=== PATIENT | female | born 1960 | race Two or more races ===

== ENCOUNTER → 2024-06-23 | Emergency (ER) | payer OTHER ==
[~2024-06-23] VITALS: Ht 165.1 cm; Wt 65.8 kg
[~2024-06-23] MED LIST: CIPRO500 MG PO; FAMOTIDINE/PF 20 MG/2 ML VIAL ONE; FAMOtidine 10 MG/ML (4ML VIAL) IV STA; METRONIDAZOLE500 MG PO; PEPCID AC20 MG PO; PROBIOTIC1 EAC2 PO; RINGERS SOLUTION,LACTATED 1,000 ML IV STA
[2024-06-23 16:04] LABS: HEMATOCRIT 38.9 % (36.0-45.00); HEMOGLOBIN 12.8 g/dL (12.0-15.00); MEAN CORPUSCULAR HEMOGLOBIN 28.2 pg (27.00-32.0); MEAN CORPUSCULAR HGB CONC 32.8 g/dl (32.0-36.0); PLATELET COUNT 198 K/uL (150-450); RED BLOOD COUNT 4.53 M/uL (4.00-6.00); RED CELL DISTRIBUTION WIDTH 13.6 % (11.5-14.5)
[2024-06-23 16:37] LABS: ALBUMIN 3.4 gm/dL (3.4-5.0); BILIRUBIN TOTAL 0.25 mg/dL (0.3-1.2); BILIRUBIN,CONJUGATED 0.11 mg/dL (0.0-0.2); BILIRUBIN,UNCONJUGATED 0.14 mg/dL (0.0-0.6); CREATININE SERUM 0.91 mg/dL (0.55-1.02); GFR 62.64; POTASSIUM 4.18 mEq/L (3.5-5.1); TOTAL PROTEIN 7.4 gm/dL (6.4-8.2)
[2024-06-23 17:05] LABS: PH,URINE 6.5 (5.0-8.0); URINE APPEARANCE Clear; URINE BILIRRUBIN Negative (NEGATIVE); URINE BLOOD Negative; URINE COLOR Yellow; URINE GLUCOSE Negative (NEGATIVE); URINE KETONE Negative (NEGATIVE); URINE LEUKOCYTE Moderate; URINE NITRATE Negative; URINE PROTEIN Negative (NEGATIVE); URINE UROBILINOGEN 0.2 E.U./dl
[2024-06-23 17:09] LABS: URINE BACTERIA 1458.8 uL (0.0-1933); URINE EPITHELIAL CELLS 3.4 uL (0.0-38.8); URINE RBC 4.5 uL (0.0-20.8); URINE WBC 598.2 uL (0.0-23.2)
[2024-06-23 17:15] LABS: URINE CAST 0.73 uL (0.0-1.40)
== END | disposition home or self-care (01) ==
LOC: ER 13:03
PROVIDERS: General Practice
DX: K57.30 Diverticulosis of large intestine without perforation or abscess without bleeding (principal); N39.0 Urinary tract infection, site not specified; N20.0 Calculus of kidney; M85.88 Other specified disorders of bone density and structure, other site; M51.369 Other intervertebral disc degeneration, lumbar region without mention of lumbar back pain or lower extremity pain

== ENCOUNTER → 2024-08-22 10:04 | Outpatient (CLI) | payer OTHER ==
[~2024-08-22 10:04] MED LIST changes: -FAMOTIDINE/PF 20 MG/2 ML VIAL ONE; -FAMOtidine 10 MG/ML (4ML VIAL) IV STA; -RINGERS SOLUTION,LACTATED 1,000 ML IV STA
[2024-08-22 11:23] LABS: PH,URINE 5.5 (5.0-8.0); URINE APPEARANCE Clear; URINE BILIRRUBIN Negative (NEGATIVE); URINE BLOOD Negative; URINE COLOR Yellow; URINE GLUCOSE Negative (NEGATIVE); URINE KETONE Negative (NEGATIVE); URINE LEUKOCYTE Trace; URINE NITRATE Negative; URINE PROTEIN Negative (NEGATIVE); URINE UROBILINOGEN 0.2 E.U./dl
[2024-08-22 11:27] LABS: URINE BACTERIA 35.4 uL (0.0-1933); URINE EPITHELIAL CELLS 14.5 uL (0.0-38.8); URINE RBC 8.8 uL (0.0-20.8); URINE WBC 11.8 uL (0.0-23.2)
[2024-08-22 11:50] LABS: HEMOGLOBIN 12.8 g/dL (12.0-15.00); MEAN CELL VOLUME 86.1 fL (80.00-100.00); MEAN CORPUSCULAR HEMOGLOBIN 28.2 pg (27.00-32.0); MEAN CORPUSCULAR HGB CONC 32.7 g/dl (32.0-36.0); PLATELET COUNT 184 K/uL (150-450); RED BLOOD COUNT 4.53 M/uL (4.00-6.00); RED CELL DISTRIBUTION WIDTH 14.3 % (11.5-14.5)
[2024-08-22 12:06] LABS: ALBUMIN 3.6 gm/dL (3.4-5.0); BILIRUBIN TOTAL 0.41 mg/dL (0.3-1.2); CALCIUM 8.6 mg/dL (8.5-10.1); CHOL HDL RATIO 3.1 (0-5.0); CREATININE SERUM 0.74 mg/dL (0.55-1.02); GFR 79.26; POTASSIUM 4.18 mEq/L (3.5-5.1); TOTAL PROTEIN 7.6 gm/dL (6.4-8.2)
[2024-08-22 12:06] LABS: URINE CAST 0.29 uL (0.0-1.40)
[2024-08-23 12:04] LABS: VITAMIN D3 25 HYDROXY 54.84 ng/ml (30-120)
== END | disposition home or self-care (01) ==
LOC: LAB 10:04
PROVIDERS: ATTEND General Practice
DX: E11.9 Type 2 diabetes mellitus without complications (principal); E03.9 Hypothyroidism, unspecified

== ENCOUNTER 2024-08-25 07:51 | Outpatient (CLI) | payer OTHER | END 2024-08-25 07:53 | disposition home or self-care (01) | LOC: MAMO-SONO 07:51 | PROVIDERS: ATTEND General Practice | DX: Z12.31 Encounter for screening mammogram for malignant neoplasm of breast (principal); R10.0 Acute abdomen ==

== ENCOUNTER 2024-08-25 09:19 | Outpatient (CLI) | payer OTHER ==
[2024-08-25 10:58] LABS: ob NEGATIVE (NEGATIVE)
== END 2024-08-25 09:20 | disposition home or self-care (01) ==
LOC: LAB 09:19
PROVIDERS: ATTEND General Practice
DX: E11.9 Type 2 diabetes mellitus without complications (principal); E03.0 Congenital hypothyroidism with diffuse goiter; I10 Essential (primary) hypertension; Z12.11 Encounter for screening for malignant neoplasm of colon

== ENCOUNTER 2024-09-08 09:36 | Outpatient (CLI) | payer OTHER | END 2024-09-08 09:40 | disposition home or self-care (01) | LOC: SONOGRAMA 09:36 | PROVIDERS: ATTEND General Practice | DX: N63.0 Unspecified lump in unspecified breast (principal) ==

== ENCOUNTER → 2024-09-30 09:23 | Outpatient (CLI) | payer OTHER ==
[2024-09-30 10:15] LABS: URINE BACTERIA 379.3 uL (0.0-1933); URINE EPITHELIAL CELLS 4.5 uL (0.0-38.8); URINE RBC 5.4 uL (0.0-20.8)
[2024-09-30 10:26] LABS: BASO % 0.3 % (0.1-1.2); HEMATOCRIT 36.5 % (34.1-44.9); HEMOGLOBIN 12.1 g/dL (11.2-15.7); LYMPH # 1.14 (1.18-3.74); LYMPH % 36.8 % (19.3-53.1); MEAN CORPUSCULAR HEMOGLOBIN 27.9 pg (25.6-32.2); MONO # 0.26 (0.24-0.82); MONO % 8.4 % (4.7-12.5); NEUT # 1.69 (1.56-6.13); NEUT % 54.5 % (34.0-71.1); PLATELET COUNT 196 K/uL (163-369); RED BLOOD COUNT 4.34 M/uL (3.93-5.22); RED CELL DISTRIBUTION WIDTH 13.6 % (11.6-14.4)
[2024-09-30 10:28] LABS: URINE BILIRRUBIN NEGATIVE (NEGATIVE); URINE BLOOD NEGATIVE; URINE GLUCOSE NEGATIVE (NEGATIVE); URINE KETONE NEGATIVE (NEGATIVE); URINE LEUKOCYTE MODERATE; URINE NITRATE NEGATIVE; URINE PROTEIN NEGATIVE (NEGATIVE); URINE UROBILINOGEN 0.2 E.U./dl
[2024-09-30 10:39] LABS: URINE APPEARANCE CLEAR; URINE COLOR YELLOW
[2024-09-30 11:07] LABS: ALBUMIN 3.4 gm/dL (3.4-5.0); BILIRUBIN TOTAL 0.41 mg/dL (0.3-1.2); CALCIUM 8.5 mg/dL (8.5-10.1); CHOL HDL RATIO 3.3 (0-5.0); CREATININE SERUM 0.7 mg/dL (0.55-1.02); GFR 84.51; GLOBULINA 4.1 G/DL (2.4-3.5); POTASSIUM 4.07 mEq/L (3.5-5.1); TOTAL PROTEIN 7.5 gm/dL (6.4-8.2); TSH 2.46 uIU/mL (0.358-3.74)
[2024-09-30 13:16] LABS: ob NEGATIVE (NEGATIVE)
== END | disposition home or self-care (01) ==
LOC: LAB 09:23
PROVIDERS: ATTEND General Practice
DX: Z12.11 Encounter for screening for malignant neoplasm of colon (principal)

== ENCOUNTER → 2025-04-30 11:36 | Outpatient (CLI) | payer OTHER ==
[2025-04-30 12:20] LABS: BASO % 0.3 % (0.1-1.2); EOS # 0.00 (0.04-0.54); EOS % 0.0 % (0.7-7.0); LYMPH # 1.09 (1.18-3.74); LYMPH % 35.4 % (19.3-53.1); MEAN PLATELET VOLUME 10.20 fl (9.4-12.4); MONO # 0.27 (0.24-0.82); MONO % 8.8 % (4.7-12.5); NEUT # 1.70 (1.56-6.13); NEUT % 55.2 % (34.0-71.1); RED CELL DISTRIBUTION WIDTH 13.1 % (11.6-14.4)
[2025-04-30 12:22] LABS: URINE APPEARANCE Clear; URINE BILIRRUBIN Negative (NEGATIVE); URINE BLOOD Negative; URINE COLOR Yellow; URINE GLUCOSE Negative (NEGATIVE); URINE KETONE Negative (NEGATIVE); URINE LEUKOCYTE Moderate; URINE NITRATE Negative; URINE PROTEIN Negative (NEGATIVE); URINE UROBILINOGEN 0.2 E.U./dl
[2025-04-30 12:25] LABS: URINE BACTERIA 679.4 uL (0.0-1933); URINE EPITHELIAL CELLS 8.7 uL (0.0-38.8); URINE RBC 2.4 uL (0.0-20.8); URINE WBC 211.8 uL (0.0-23.2)
[2025-04-30 12:32] LABS: URINE CAST 0.14 uL (0.0-1.40)
[2025-04-30 13:06] LABS: ALT/SGPT 51.0 U/L (12-78); AST/SGOT 34.0 U/L (15-37); BILIRUBIN TOTAL 0.48 mg/dL (0.3-1.2); BUN CREA RATIO 23.0 (7.0-25.0); CHOL HDL RATIO 3.0 (0-5.0); CREATININE SERUM 0.74 mg/dL (0.55-1.02); GFR 79.26; GLOBULINA 4.5 G/DL (2.4-3.5); GLUCOSE FASTING 86.0 mg/dL (65-100); HDL 78.0 mg/dl (40-60); LDL 136.0 mg/dl (0-130); OSMOLALITY SERUM 280.0 MOSM/KG (275-295); TSH 2.55 uIU/mL (0.358-3.74); VLDL 18.0 (0-39)
== END | disposition home or self-care (01) ==
LOC: LAB 11:36
PROVIDERS: ATTEND General Practice
DX: E11.9 Type 2 diabetes mellitus without complications (principal); I10 Essential (primary) hypertension; E78.00 Pure hypercholesterolemia, unspecified; E03.8 Other specified hypothyroidism; Z12.11 Encounter for screening for malignant neoplasm of colon

== ENCOUNTER 2025-05-03 13:04 | Outpatient (CLI) | payer OTHER ==
[2025-05-03 13:54] LABS: ob NEGATIVE (NEGATIVE)
== END 2025-05-03 13:08 | disposition home or self-care (01) ==
LOC: LAB 13:04
DX: E11.9 Type 2 diabetes mellitus without complications (principal); E03.8 Other specified hypothyroidism; E78.2 Mixed hyperlipidemia